=== PATIENT | female | born 1950 | race Caucasian/White ===

== ENCOUNTER → 2016-09-21 | Day surgery (SDC) | payer OTHER ==
[~2016-09-21] MED LIST: AMLO5 PO; BUPIVACAINE HCL PF 0.5% 30 ML VIAL ONE; COQ-150C; HYZA50TA2 PO; KETOROLAC TROMETHAMINE 30 MG/ML (IVP) VIAL IV PUSH ONE; LACTATED RINGER'S 1000 ML INJ 1,000 ML ONE; LIPI20TA PO; MIDAZOLAM HCL 2 MG/2 ML VIAL ONE; MORPHINE SULFATE 4 MG/ML INJ ONE; ONDANSETRON HCL 4 MG/2 ML VIAL IV PUSH ONE; PROPOFOL 200 MG/20 ML AMP IV ONE; ceFAZolin 2 GM PREMIX 50 ML ONE
--- NOTE | 2016-09-21 10:56 | MP ---
cc: HA VENEGAS DATE OF SURGERY September 21, 2016. SURGEON Dr. Ha Venegas DIRECTOR ENGINEERING None. PREOPERATIVE DIAGNOSIS Right foot hallux abductovalgus. POSTOPERATIVE DIAGNOSIS Right foot hallux abductovalgus. PROCEDURES PERFORMED 1. Right foot Lapidus bunionectomy. 2. Right foot Kenny bunionectomy. 3. Capsulorrhaphy. PATHOLOGY SENT None. ANESTHESIA General. HEMOSTASIS Pneumatic calf tourniquet at 120 minutes at 20 mmHg. ESTIMATED BLOOD LOSS Less than 5 mL. INJECTABLES 20 cc of 0.5% Marcaine plain. MATERIALS USED Two BME pau, one 0.062 threaded K-wire, 3-0 Monocryl, 3-0 Prolene. COMPLICATIONS None. INDICATIONS Ms. Klein is a 66-year-old female patient well-known to me with a severe hypermobile bunion of the right foot. She has had increasing pain and discomfort both with shoe gear as well as activity and at this time has elected for surgical intervention. The consent was signed. The procedure was explained. No guarantees were given. I spoke with the patient in detail regarding the procedure as well as the postoperative recovery. I also spoke with her son, Turner Klein, who is a physician as well. The consent was signed. No guarantees were given. The patient declined a second opinion. PROCEDURE Under mild sedation, the patient was brought into the operating room and placed on the operating table in supine position. Following IV sedation, a pneumatic calf tourniquet was placed around the right calf. The leg was then scrubbed, prepped and draped in the usual aseptic manner. An Esmarch bandage was used to exsanguinate the right lower extremity and the tourniquet was inflated to 250 mmHg. Attention was directed to the dorsal aspect of the first metatarsal cuneiform joint where a linear longitudinal incision was deepened through the skin with care being taken to identify and retract any vital neurovascular structures. Incision was deepened to the level of the joint and the soft tissue capsule was reflected both medially and laterally to visualize the metatarsocuneiform joint. An osteotome was used to break up the plantar shelf of soft tissue and an oscillating saw was used to remove the opposing cartilaginous surfaces in very thin wafers for minimal shortening. Those pieces were removed and a 0.062 K-wire was used to retrograde drill the opposing surfaces. Healthy bleeding cancellus bone was noted. The area was flushed with copious amounts of sterile saline. The IM angle was manually reduced and temporarily pinned in place with a 0.062 K-wire. It was observed under fluoroscopy and the IM angle was reduced to an anatomical position and two BME pau were appropriately applied, one to the medial aspect and one to the dorsal aspect. Excellent compression was noted across the osteotomy site. However, there was residual deformity at the hallux itself as well as a large amount of redundant tissue to the medial metatarsal. The decision was made to make a second incision over the dorsal aspect of the metatarsophalangeal joint, again deepened through skin and subcutaneous tissue with care being taken to identify and retract any vital neurovascular structures. There was a small bony prominence noted at the medial metatarsal head which was removed with a rongeur and smoothed. Some of the redundant capsule was also removed and a capsulorrhaphy was performed. Attention was then directed to the dorsal aspect of the proximal phalanx where an Kenny osteotomy was created in order to preserve of the cartilage at the base of the proximal phalanx. A 0.062 K-wire was inserted. There was excellent compression noted across the osteotomy site as well as correction of the lateral deviation of the hallux. The areas were both flushed with copious amounts of sterile saline. Correction was confirmed on fluoroscopy. Any and all bleeders were ligated and cauterized as necessary. Deep and subcutaneous tissues were closed with 3-0 Monocryl. The skin was closed with 0 Prolene. Pneumatic calf tourniquet was released and noted a prompt hyperemic response to all digits of the right foot. 20 cc of 0.5% Marcaine plain were injected around the first ray. The foot was cleaned and dressed with sterile Adaptic, 4x4s and a well-padded posterior splint. The patient tolerated the procedure and the anesthesia well. She will recover in the PACU for a period of time before being discharged home with written and oral postoperative instructions. Ha ORR/ETHAN /10:17 AM /10:34 AM
== END | disposition home or self-care (01) ==
LOC: ESDC 06:32
PROVIDERS: ATTEND Podiatrist Foot & Ankle Surgery
DX: M20.11 Hallux valgus (acquired), right foot (principal)
CPT/HCPCS: 01480; 28297; 28298; 73630; 76000; C1713; J0690; J1885; J2250; J2270; J2405; J3010; J7120

== ENCOUNTER → 2017-04-19 | Day surgery (SDC) | payer OTHER ==
[~2017-04-19] VITALS: Ht 144.8 cm; Wt 57.5 kg
[~2017-04-19] MED LIST changes: +AMLO2.5T PO; -AMLO5 PO; -BUPIVACAINE HCL PF 0.5% 30 ML VIAL ONE; +CHLORHEXIDINE GLUCONATE 2 % 1 PACK (2 CLOTHS) TOPICAL PRN; +COQ-100C5 PO; -COQ-150C; +FISHOIL PO; -KETOROLAC TROMETHAMINE 30 MG/ML (IVP) VIAL IV PUSH ONE; -LACTATED RINGER'S 1000 ML INJ 1,000 ML ONE; +LACTATED RINGER'S 1000 ML IV PRN; +LIDOCAINE HCL 1% PF 30 ML VIAL ONE; +LIDOCAINE HCL 2% JELLY 5 ML SYRINGE TOPICAL ONE; +METOPROLOL TARTRATE 25 MG TAB PO PRN; -MIDAZOLAM HCL 2 MG/2 ML VIAL ONE; -MORPHINE SULFATE 4 MG/ML INJ ONE; +ONCETAB7 PO; -ONDANSETRON HCL 4 MG/2 ML VIAL IV PUSH ONE; +POVIDONE IODINE 5% (ANTISEPSIS KIT) 4 APPLICATIONS EACH NARE PRN; +PROPARACAINE HCL 0.5% OPHT SOLN 15 ML BTL RIGHT EYE ONE; -PROPOFOL 200 MG/20 ML AMP IV ONE; +SODIUM CHLORID 0.9% 500 ML IV PRN; +TOBRAMYCIN/DEXAMETHASONE OPTH OINT 3.5 GM TUBE ONE; +VITA200C3 PO; +VITAMIN B1 PO; +VITATAB11 PO; -ceFAZolin 2 GM PREMIX 50 ML ONE
[2017-04-19] MEDS: CYCLOPENTOLATE HCL 1% OPHT SOLN 2 ML BTL RIGHT EYE SCH ×4 (08:45→09:00)
[2017-04-19] MEDS: FLURBIPROFEN 0.03% OPHT SOLN 2.5 ML BTL RIGHT EYE SCH ×4 (08:45→09:00)
[2017-04-19] MEDS: TROPICAMIDE 1% OPHT SOLN 15 ML BTL RIGHT EYE SCH ×4 (08:45→09:00)
[2017-04-19] MEDS: PHENYLEPHRINE HCL 10% OPTH SOLN 5 ML BTL RIGHT EYE SCH ×4 (08:45→09:00)
--- NOTE | 2017-04-19 10:37 | MP ---
cc: LAN KERN M.D. Corrected Copy: 04/27/17 [facility] #[id number] DATE OF SURGERY 04/19/2017 PREOPERATIVE DIAGNOSIS Visually significant cataract right eye. POSTOPERATIVE DIAGNOSIS Visually significant cataract right eye. OPERATION Phacoemulsification with posterior chamber lens implantation, right eye. SURGEON Lan Kern MD ANESTHESIA Topical with MAC COMPLICATIONS None PROCEDURE After informed consent was obtained, the patient was brought into the operative suite and placed on appropriate monitors by the Anesthesia Service. The patient had been given dilating drops and topical lidocaine gel in the holding area. The patient's operative eye was then prepped and draped in the usual sterile fashion. A wire lid speculum was placed. Further 2% lidocaine was then dropped on the cornea prior to beginning the procedure. A paracentesis incision was made in the peripheral cornea with a 1 mm jannie keratome. The anterior chamber was filled with viscoelastic. The anterior chamber was then entered through a stepped, clear corneal incision using a sharp 3 mm jannie keratome. A circular tear capsulorrhexis was then made with a bent needle cystitome. Following hydrodissection of the lens nucleus with balance saline, phacoemulsification of the nucleus was performed using a modified chopping technique. The remaining cortex was removed with irrigation/aspiration. The prior two procedures were both performed using the handpieces of the [employer] phaco unit. The capsular bag was then filled with viscoelastic. The intraocular lens was then injected into the capsular bag and positioned. The type of intraocular lens and its power can be found elsewhere in this chart. The remaining viscoelastic was then removed from the anterior chamber with the IA handpiece. The anterior chamber was reformed with balanced saline. The wound was then closed securely with stromal hydration. It was found to be watertight to an intraocular pressure of at least 30 mmHg by palpation. A small amount of balanced salt solution was then removed through the paracentesis site and the intraocular pressure at the end of the case was approximately 20 by palpation. All drapes were then removed. TobraDex ointment was then placed in the eye, which was closed beneath a semi-pressure patch dressing. The patient tolerated this procedure well and left the operating room awake and alert. The patient is to follow-up in my office in the morning. MD ESTIVEN Bourgeois/MARIO /9:49 AM /8:50 AM
[2017-04-19 10:40] VITALS: BP 124/94; PULSE 74; RESP 16; TEMP 98.2; O2SAT 96
== END | disposition home or self-care (01) ==
LOC: PHSDC 07:44
PROVIDERS: ATTEND Optometrist Occupational Vision
DX: H26.9 Unspecified cataract (principal)
CPT/HCPCS: 00142; 66984; J7040; V2632

== ENCOUNTER → 2017-05-24 | Day surgery (SDC) | payer OTHER ==
[~2017-05-24] VITALS: Ht 144.8 cm; Wt 55.2 kg
[~2017-05-24] MED LIST changes: +PROPARACAINE HCL 0.5% OPHT SOLN 15 ML BTL LEFT EYE ONE; -PROPARACAINE HCL 0.5% OPHT SOLN 15 ML BTL RIGHT EYE ONE
[2017-05-24] MEDS: PHENYLEPHRINE HCL 10% OPTH SOLN 5 ML BTL LEFT EYE SCH ×4 (09:00→09:15)
[2017-05-24] MEDS: CYCLOPENTOLATE HCL 1% OPHT SOLN 2 ML BTL LEFT EYE SCH ×4 (09:00→09:15)
[2017-05-24] MEDS: FLURBIPROFEN 0.03% OPHT SOLN 2.5 ML BTL LEFT EYE SCH ×4 (09:00→09:15)
[2017-05-24] MEDS: TROPICAMIDE 1% OPHT SOLN 15 ML BTL LEFT EYE SCH ×4 (09:00→09:15)
[2017-05-24 10:34] VITALS: TEMP 97.2
[2017-05-24 11:00] VITALS: BP 129/88; PULSE 66; RESP 14; O2SAT 96
--- NOTE | 2017-05-25 11:39 | MP ---
cc: LAN KERN MD [facility] NUMBER: [id number] DATE OF SURGERY: 05/24/2017 PREOPERATIVE DIAGNOSIS: Visually significant cataract left eye. POSTOPERATIVE DIAGNOSIS: Visually significant cataract left eye. OPERATION: Phacoemulsification with posterior chamber lens implantation, left eye. SURGEON: Lan Kern MD ANESTHESIA: Topical with MAC. COMPLICATIONS: None. PROCEDURE: After informed consent was obtained, the patient was brought into the operative suite and placed on appropriate monitors by the Anesthesia Service. The patient had been given dilating drops and topical lidocaine gel in the holding area. The patient's operative eye was then prepped and draped in the usual sterile fashion. A wire lid speculum was placed. Further 2% lidocaine was then dropped on the cornea prior to beginning the procedure. A paracentesis incision was made in the peripheral cornea with a 1 mm jannie keratome. The anterior chamber was filled with viscoelastic. The anterior chamber was then entered through a stepped, clear corneal incision using a sharp 3 mm jannie keratome. A circular tear capsulorrhexis was then made with a bent needle cystitome. Following hydrodissection of the lens nucleus with balance saline, phaco-emulsification of the nucleus was performed using a modified chopping technique. The remaining cortex was removed with irrigation/aspiration. The prior two procedures were both performed using the handpieces of the [employer] phaco unit. The capsular bag was then filled with viscoelastic. The intraocular lens was then injected into the capsular bag and positioned. The type of intraocular lens and its power can be found elsewhere in this chart. The remaining viscoelastic was then removed from the anterior chamber with the IA handpiece. The anterior chamber was reformed with balanced saline. The wound was then closed securely with stromal hydration. It was found to be watertight to an intraocular pressure of at least 30 mmHg by palpation. A small amount of balanced salt solution was then removed through the paracentesis site and the intraocular pressure at the end of the case was approximately 20 by palpation. All drapes were then removed. TobraDex ointment was then placed in the eye, which was closed beneath a semi-pressure patch dressing. The patient tolerated this procedure well and left the operating room awake and alert. The patient is to follow-up in my office in the morning. MD Franci Bourgeois /11:24 AM /11:26 AM
== END | disposition home or self-care (01) ==
LOC: PHSDC 08:33
PROVIDERS: ATTEND Optometrist Occupational Vision
DX: H25.812 Combined forms of age-related cataract, left eye (principal)
CPT/HCPCS: 00142; 66984; J7040; V2632